=== PATIENT | male | born 1940 | race Caucasian/White ===

== ENCOUNTER 2017-01-01 17:58 | Emergency (ER) | payer MEDICARE, MEDICAID ==
[~2017-01-01] VITALS: Ht 157.5 cm; Wt 67.5 kg
[2017-01-01 18:01] VITALS: Ht 157.5 cm; Wt 67.5 kg
[2017-01-01] MEDS ORDERED: SOD CHLORIDE 0.9% 1,000 ML IV STA (20:57)
[2017-01-01] MEDS ORDERED: HYDROmorphONE 1 MG/ML SYG IV STA (20:57)
[2017-01-01] MEDS ORDERED: ONDANSETRON 4 MG INJ IV STA ×2 (20:57→21:43)
[2017-01-01 21:25] LABS: ADD SCAN DIFF NO
[2017-01-01] MEDS ORDERED: OLOP2.5D BOTH EYES (21:26)
[2017-01-01] MEDS ORDERED: BIMA2.5D BOTH EYES (21:26)
[2017-01-01 21:27] LABS: BASOPHIL # 0.1 10^3/ul (0.0-0.1); BASOPHILS % 0.7 % (0.0-2.0); EOSINOPHILS # 0.4 10^3/ul (0.0-0.5); EOSINOPHILS % 4.8 % (0.0-7.0); HEMATOCRIT 41.7 % (42.0-52.0); HEMOGLOBIN 13.4 g/dl (14.0-18.0); LYMPHOCYTES # 4.2 10^3/ul (0.8-2.9); LYMPHOCYTES % 49.5 % (15.0-51.0); MEAN CORPUSCULAR HEMOGLOBIN 30.5 pg (29.0-33.0); MEAN CORPUSCULAR HGB CONC 32.1 g/dl (32.0-37.0); MEAN CORPUSCULAR VOLUME 94.8 fl (82.0-101.0); MEAN PLATELET VOLUME 11.7 fl (7.4-10.4); MONOCYTE # 0.6 10^3/ul (0.3-0.9); MONOCYTES % 7.5 % (0.0-11.0); NEUTROPHIL # 3.2 10^3/ul (1.6-7.5); NEUTROPHILS % 37.3 % (39.0-77.0); PLATELET COUNT 208 10^3/UL (140-415); RED CELL DISTRIBUTION WIDTH 13.6 % (11.5-14.5); WHITE BLOOD COUNT 8.5 10^3/ul (4.8-10.8)
[2017-01-01] MEDS ORDERED: LANT3I SC (21:27)
[2017-01-01] MEDS ORDERED: OLME40TA14 PO (21:28)
[2017-01-01] MEDS ORDERED: METO10TA92 PO (21:28)
[2017-01-01] MEDS ORDERED: GLIM4TAB PO (21:29)
[2017-01-01] MEDS ORDERED: DEXL60CA2 PO (21:30)
[2017-01-01] MEDS ORDERED: SIMV20TA PO (21:30)
[2017-01-01] MEDS ORDERED: PRIM50TA38 PO (21:31)
[2017-01-01] MEDS ORDERED: METF1000 PO (21:31)
[2017-01-01] MEDS ORDERED: MEMA10TA16 PO (21:32)
[2017-01-01 21:53] LABS: ALBUMIN 5.2 g/dl (3.3-4.9); ALBUMIN/GLOBULIN RATIO 1.57; BILIRUBIN,INDIRECT 0.3 mg/dl (0-1.1); BILIRUBIN,TOTAL 0.3 mg/dl (0.2-1.3); CALCIUM 10.1 mg/dl (8.4-10.2); CREATININE 1.14 mg/dl (0.61-1.24); POTASSIUM 4.2 mmol/L (3.5-5.1); TOTAL PROTEIN 8.5 g/dl (6.1-8.1)
[2017-01-01 22:02] LABS: ADD UMIC NO; URINE BILIRUBIN (Dip) NEGATIVE (NEGATIVE); URINE BLOOD (Dip) NEGATIVE (NEGATIVE); URINE COLOR LT. YELLOW (YELLOW); URINE GLUCOSE (Dip) NEGATIVE (NEGATIVE); URINE KETONES (Dip) NEGATIVE (NEGATIVE); URINE LEUKOCYTE ESTERASE (Dip) NEGATIVE (NEGATIVE); URINE NITRITE (Dip) NEGATIVE (NEGATIVE); URINE TOTAL PROTEIN (Dip) NEGATIVE (NEGATIVE); URINE UROBILINOGEN (Dip) 0.2 E.U./dL (0.1-1.0)
--- NOTE | 2017-01-01 22:10 | ERA ---
ER Documentation Chief Complaint Date/Time DATE: 01/01/17 TIME: 22:07 Chief Complaint SENT BY PCP FOR RECTAL BLEEDING,DIZZINESS, DEHYDRATION, ABDOMINAL PAIN, N/V (HARRIS MELVIN DO) HPI This is a 76-year-old male who is sent here by his primary care physician. The patient has had some diffuse abdominal pain but mostly located in the upper midabdomen region with 3 days of diarrhea and nausea. Patient went to his doctor 2 days ago and received a shot of Rocephin because he was told he had a urinary tract infection. His urinalysis is here with him and he has trace leukocytes. Patient waited at home a day to see if he get better but did not get better is continued to have pain and diarrhea. He has no chest pain or shortness of breath and does not think he has had a fever his diarrhea is nonbloody and no mucus. The patient is a history of peptic ulcer disease and was guaiac positive in his doctor's office yesterday (HARRIS MELVIN DO) ROS All systems reviewed and are negative except as per history of present illness. (HARRIS MELVIN DO) Medications Home Meds Reported Medications Memantine* (Namenda*) 10 Mg Tablet, 10 MG PO BID, #60 TAB 01/01/17 Primidone* (Mysoline*) 50 Mg Tablet, 50 MG PO HS, TAB 01/01/17 Metformin Hcl* (Metformin Hcl*) 1,000 Mg Tablet, 1000 MG PO WITH BREAKFAST DINNE , #60 TAB 01/01/17 Dexlansoprazole (Dexilant) 60 Mg Denny., 60 MG PO DAILY, #30 CAP 01/01/17 Simvastatin* (Zocor*) 20 Mg Tablet, 20 MG PO QHS, #30 TAB 01/01/17 Glimepiride* (Glimepiride*) 4 Mg Tablet, 4 MG PO WITH BREAKFAST DINNE, TAB 01/01/17 Olmesartan Medoxomil (Benicar) 40 Mg Tablet, 40 MG PO DAILY, #30 TAB 01/01/17 Metoclopramide* (Reglan*) 10 Mg Tablet, 10 MG PO TID, TAB 01/01/17 Insulin Glargine* (Lantus*) 100 Unit/Ml Soln, 10 UNIT SC QAM, #1 VIAL 01/01/17 Olopatadine* (Pataday*) 0.2% - 2.5 Ml Drops, 1 DROP BOTH EYES DAILY, EA 01/01/17 Bimatoprost* (Lumigan*) 0.01%-2.5 Ml Opht Drops, 1 DROP BOTH EYES HS, EA 01/01/17 Discontinued Reported Medications [None] No Conflict Check 08/17/10 Allergies Allergies: Coded Allergies: Penicillins (Verified Allergy, Unknown, RASH, SWELLING, 01/01/17) PMhx/Soc History of Surgery: Yes (KIDNEY STONE) Anesthesia Reaction: No Hx Neurological Disorder: No Hx Respiratory Disorders: No Hx Cardiac Disorders: Yes (HTN) Hx Psychiatric Problems: No Hx Miscellaneous Medical Probl: Yes (DM ) Hx Alcohol Use: No Hx Substance Use: No Hx Tobacco Use: No Smoking Status: Never smoker [facility] [employer] [facility] FmHx Family History: No coronary disease ([facility]) Physical Exam Vitals Vital Signs Date Time Temp Pulse Resp B/P Pulse Ox O2 Delivery O2 Flow Rate FiO2 01/01/17 23:46 68 15 157/81 98 Room Air 01/01/17 21:26 77 18 160/77 98 Room Air 01/01/17 18:01 97.7 73 20 166/80 97 ([facility]) Physical Exam Const: Well-developed, well-nourished Head: Atraumatic, normocephalic Eyes: Normal Conjunctiva, PERRLA, EOMI, normal sclera, no nystagmus ENT: Normal External Ears, Nose and Mouth, moist mucus membranes. Neck: Full range of motion. No meningismus, no lymphadenopathy. Resp: Clear to auscultation bilaterally, no wheezing, rhonchi, rales Cardio: Regular rate and rhythm, no murmurs, S1 S2 present Abd: Soft, diffuse tenderness but mostly located in the midabdomen, moderate severity non distended. Normal bowel sounds, mild guarding no rebound, no pulsitile abdominal masses or bruits Skin: No petechiae or rashes, no ecchymosis , no maculopapular rash Back: No midline or flank tenderness Ext: No cyanosis, or edema, FROM x 4, normal inspection, neurovascularly intact x 4 Neur: Awake and alert, STR 5/5 x 4, sensation intact x 4, no focal findings, cerebellum intact Psych: Normal Mood and Affect ([facility] KLEIN) Result Diagram: 01/01/17211401/01/172114 Results 24 hrs Laboratory Tests Test 01/01/17 21:15 01/01/17 21:40 01/01/17 21:51 White Blood Count 8.510^3/ul Red Blood Count 4.4010^6/ul Hemoglobin 13.4g/dl Hematocrit 41.7% Mean Corpuscular Volume 94.8fl Mean Corpuscular Hemoglobin 30.5pg Mean Corpuscular Hemoglobin Concent 32.1g/dl Red Cell Distribution Width 13.6% Platelet Count 91363^3/UL Mean Platelet Volume 11.7fl Neutrophils % 37.3% Lymphocytes % 49.5% Monocytes % 7.5% Eosinophils % 4.8% Basophils % 0.7% Nucleated Red Blood Cells % 0.0/100WBC Neutrophils # 3.210^3/ul Lymphocytes # 4.210^3/ul Monocytes # 0.610^3/ul Eosinophils # 0.410^3/ul Basophils # 0.110^3/ul Nucleated Red Blood Cells # 0.010^3/ul Sodium Level 143mmol/L Potassium Level 4.2mmol/L Chloride Level 101mmol/L Carbon Dioxide Level 30mmol/L Anion Gap 16 Blood Urea Nitrogen 13mg/dl Creatinine 1.14mg/dl Glucose Level 96mg/dl Calcium Level 10.1mg/dl Total Bilirubin 0.3mg/dl Direct Bilirubin 0.00mg/dl Indirect Bilirubin 0.3mg/dl Aspartate Amino Transf (AST/SGOT) 41IU/L Alanine Aminotransferase (ALT/SGPT) 46IU/L Alkaline Phosphatase 69IU/L Total Protein 8.5g/dl Albumin 5.2g/dl Globulin 3.30g/dl Albumin/Globulin Ratio 1.57 Lipase 150U/L Urine Color LT. YELLOW Urine Clarity CLEAR Urine pH 5.5 Urine Specific [place] <=1.005 Urine Ketones NEGATIVE Urine Nitrite NEGATIVE Urine Bilirubin NEGATIVE Urine Urobilinogen 0.2 E.U./dL Urine Leukocyte Esterase NEGATIVE Urine Hemoglobin NEGATIVE Urine Glucose NEGATIVE% Urine Total Protein NEGATIVE Bedside Glucose 100mg/dL Current Medications Medications (Trade) Dose Ordered Sig/Lester Route PRN Reason Start Time Stop Time Status Last Admin Dose Admin Sodium Chloride (NS) 1,000 ml @ 1,000 mls/hr Q1H STAT IV 01/01/17 20:57 01/01/17 21:56 DC 01/01/17 21:13 Hydromorphone HCl (Dilaudid) 1 mg ONCE STAT IV 01/01/17 20:57 01/01/17 20:59 DC 01/01/17 21:13 Ondansetron HCl (Zofran Inj) 4 mg ONCE STAT IV 01/01/17 20:57 01/01/17 20:59 DC 01/01/17 21:12 Ondansetron HCl (Zofran Inj) 4 mg ONCE STAT IV 01/01/17 21:43 01/01/17 21:44 DC 01/01/17 21:56 Metoclopramide HCl (Reglan) 10 mg ONCE ONCE IV 01/01/17 22:30 01/01/17 22:31 DC 01/01/17 22:21 IV Flush 10 ml 10 ml STK-MED ONCE .ROUTE 01/01/17 22:24 01/01/17 22:25 DC Sodium Chloride (NS) 100 ml @ ud STK-MED ONCE .ROUTE 01/01/17 22:24 01/01/17 22:25 DC Iohexol (Omnipaque 300mg/ ml) 150 ml STK-MED ONCE .ROUTE 01/01/17 22:24 01/01/17 22:25 DC (CEDRIC STOREY DO) Procedures/MDM Will have Dr. Storey any follow-up and complete the patient's disposition and check on CT scan and labs (HARRIS MELVIN DO) This 76-year-old male presents to the emergency room for evaluation of generalized weakness and abdominal pain. The patient was being treated for urinary tract infection and to receive Rocephin in the emergency room. CT of the abdomen and pelvis does reveal minor stranding around the kidney with no signs of disseminated infection or sepsis. The patient is hemodynamically stable at this time. He is not complaining of any pain and will be discharged home with a prescription for Zofran, and Bactrim to take over the course of next 2 weeks. (CEDRIC STOREY DO) Departure Diagnosis: Primary Impression: Abdominal pain Qualified Code: R10.84 - Generalized abdominal pain Additional Impression: Diarrhea Qualified Code: R19.7 - Diarrhea, unspecified type Condition: Stable HARRIS MELVIN DO Jan 01, 2017 22:10 CEDRIC STOREY DO Jan 01, 2017 23:49
[2017-01-01] MEDS ORDERED: IOHEXOL 300MG/ML 150 ML BTL ONE (22:24)
[2017-01-01] MEDS ORDERED: SOD CHLORIDE 0.9% 100 ML ONE (22:24)
[2017-01-01] MEDS ORDERED: METOCLOPRAMIDE 10 MG INJ IV ONE (22:30)
--- NOTE | 2017-01-01 23:25 | RADRPT ---
PROCEDURE: CT Abdomen and pelvis with contrast. CLINICAL INDICATION: Abdominal pain. TECHNIQUE: CT scan of the abdomen and pelvis with contrast was performed on a multi-detector high -resolution CT scanner. The patient was scanned following the uncomplicated administration of 90 cc of Omnipaque 300 intravenous contrast. Coronal and sagittal reformatted images were obtained from the axial source images. Images were reviewed on a high-resolution PACS workstation. One or more of the following dose reduction techniques were used: - Automated exposure control. - Adjustment of the mA and/or kV according to patient size. - Use of iterative reconstruction technique. Exam CTD/vol = 8.10 mGy. Total exam DLP = 468.35 mGy-cm. COMPARISON: 03/27/2008. FINDINGS: Evaluation of the lung bases demonstrates mild bibasilar atelectasis. There are pleural calcificati ons along the left hemidiaphragm. There is a small pericardial effusion. Abdomen: The liver is normal in size. There is no focal mass or dilatation of the biliary tree. T he gallbladder is not distended. The spleen, pancreas and bilateral adrenal glands are within jimmie l limits. Bilateral kidneys are normal in size with symmetric enhancement. There is no focal renal mass identified. There is mild left-sided hydronephrosis with mild perinephric stranding and fluid . There is no retroperitoneal adenopathy. The abdominal aorta is of normal caliber. There is no abnormal bowel wall thickening or distension. There is no bowel obstruction or free air . A normal appendix is identified. There is descending and sigmoid diverticulosis without evidence of diverticulitis. There is no ascites. Pelvis: The bladder is moderately distended. There is a small right inguinal hernia containing fat . The prostate and seminal vesicles are within normal limits. There is no significant pelvic adeno ana or free fluid. Evaluation of the osseous structures demonstrates no suspicious lytic or blastic lesion. IMPRESSION: Mild left-sided hydronephrosis with mild perinephric stranding and fluid, decreased compared with . Calcified pleural plaques along the left hemidiaphragm, unchanged. Descending and sigmoid diverticulosis without evidence of diverticulitis. Mild bibasilar atelectasis. Small pericardial effusion. Moderately distended bladder. Small right inguinal hernia containing fat. .Chris Carson MD, MD Date Time Electronically viewed and signed by .Chris Carson MD, MD on 01/01/2017 23:25 .T/
[2017-01-01] MEDS ORDERED: ONDA4TAB8 PO (23:50)
[2017-01-01] MEDS ORDERED: SULF1TAB31 PO (23:50)
[2017-01-02 00:22] VITALS: BP 123/72; PULSE 68; RESP 17
== END 2017-01-02 00:23 | disposition home or self-care (01) ==
LOC: E/R 17:58
DX: R10.84 Generalized abdominal pain (principal); R19.7 Diarrhea, unspecified; E11.9 Type 2 diabetes mellitus without complications; I10 Essential (primary) hypertension; R11.2 Nausea with vomiting, unspecified; Z79.4 Long term (current) use of insulin; Z79.84 Long term (current) use of oral hypoglycemic drugs
CPT/HCPCS: 36415; 74177; 80053; 81003; 82962; 83690; 85025; 87086; 96374; 96375; 96376; 99285; J1170; J2405; J2765; J7030; Q9967

== ENCOUNTER 2018-07-11 17:55 | Emergency (ER) | END 2018-07-11 22:41 | disposition home or self-care (01) ==